=== PATIENT | male | born 1950 | race Caucasian/White ===

== ENCOUNTER 2022-05-05 11:45 | Day surgery (SDC) | payer BC ==
[2022-04-28 11:18] VITALS: BMI 30.5
[2022-05-05 12:08] VITALS: RESP 18
[2022-05-05] MEDS ORDERED: SUCCINYLCHOLINE CHLORIDE 200 MG/10 ML SYRINGE ONE (13:12)
[2022-05-05] MEDS ORDERED: MIDAZOLAM HCL 2 MG/2 ML SINGLE DOSE VIAL ONE (13:12)
[2022-05-05] MEDS ORDERED: PROPOFOL 60 ML ONE (13:12)
[2022-05-05] MEDS ORDERED: BUPIVACAINE HCL/PF 2.5 MG/ML - 30 ML VIAL IJ ONE (13:27)
[2022-05-05] MEDS ORDERED: ceFAZolin SODIUM 1 GM VIAL ONE (13:40)
[2022-05-05] MEDS ORDERED: ONDANSETRON 4 MG/2 ML VIAL ONE ×2 (13:40→15:19)
[2022-05-05] MEDS ORDERED: KETOROLAC TROMETHAMINE 30 MG/1 ML VIAL ONE (13:40)
[2022-05-05] MEDS ORDERED: DEXAMETHASONE SOD PHOSPHATE 4 MG/1 ML VIAL ONE (13:40)
[2022-05-05] MEDS ORDERED: ONDANSETRON 4 MG/2 ML VIAL IVPUSH PRN (15:08)
[2022-05-05] MEDS ORDERED: ACETAMINOPHEN 325 MG TABLET (FP) PO PRN (15:08)
[2022-05-05] MEDS ORDERED: PROMETHAZINE HCL 25 MG/1 ML VIAL IVPUSH PRN (15:08)
[2022-05-05] MEDS ORDERED: oxyCODONE HCL 5 MG TABLET PO PRN (15:08)
[2022-05-05 15:32] VITALS: TEMP 97.6
[2022-05-05] MEDS ORDERED: PROMETHAZINE HCL 25 MG/1 ML VIAL ONE (15:56)
[2022-05-05 17:24] VITALS: BP 128/71; PULSE 82
== END 2022-05-05 17:26 | disposition home or self-care (01) ==
LOC: FASU 11:45
PROVIDERS: ATTEND Podiatrist Foot Surgery
PROC: 0QSN04Z Reposition Right Metatarsal with Internal Fixation Device, Open Approach (ICD-10-PCS; principal; 2022-05-05 13:58)
DX: M20.11 Hallux valgus (acquired), right foot (principal); M19.071 Primary osteoarthritis, right ankle and foot
CPT/HCPCS: 73630-TC-RT-FY; 88305-TC; 88311-TC; 94760